=== PATIENT | male | born 1990 | race Caucasian/White ===

== ENCOUNTER 2018-07-31 12:31 | Outpatient (RCR) | payer MEDICARE, MEDICAID, SELFPAY ==
--- NOTE | 2018-07-31 14:26 | IE_ITS ---
Date: 07/31/18 Referring: Simran Stevens NP M.D. Diagnosis: LBP P.T. Diagnosis: Same SUBJECTIVE: Kole complains of intermittent discomfort throughout the lower lumbar area which generally occurs with prolonged sitting and with activity that entails both bending and lifting. This does not generally interfere with his sleeping pattern with minimal a.m stiffness. It does not hurt with coughing or sneezing and no complains of sciatica. He does not have any bowel or bladder dysfunction. History of Present Illness: He is a 28 year old male with CP who has had chronic lumbago. He was seen numerous years ago and had a couple sessions of PT along with HEP. He has stopped performing his exercises a while back. Recently he has noticed a reoccurrence of his lumbago and was referred to PT. Pain Ratin-2/10 on VAS Pain Location: Throughout the central part of the low back. Current Level of Function: He has pain with lifting heavier items such as splitting and stacking wood along with sitting or standing for more than 1/2 hour, etc.. 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 He is on social security disability. Falls in the last year: ____ No __X__Yes - How many? __A few__ - (if over 2 , balance SM needs to be completed) Reported hospitalizations in the last year - __X__ No ____ Yes - Dates of admission/reason: Medications: Baclofen Quality of Life: __X__ Good Standardized Measures: MOLBPDQ: __20% deficit__ OBJECTIVE: Posture: (L) shoulder is lower than the (R) with lateral shift to the (L). His head is rotated to the (L) at approximately 45*. He has a mild protruding abdomen with lumbar lordosis and his (L) pelvic brim is lower than the (R). He is a significant pronator on the (L) compared to the (R). Observation: (behavior, atrophy, skin color, etc.) Pleasant with no abnormal pain behavior noted and cooperative. Gait: Ambulates without an assistive device with supination and pronation on the (L) along with toeing out with squinting patella due to his genu valgus. He has difficulty walking on his heels and toes due more to his balance rather than weakness. Palpation: He is non tender throughout the lumbar paraspinals, QL, piriformis, glute med. ROM: Cervical spine movements are non irritable, rotation to the (L) is at 80* to the (R) and 75* and side bending is 45* (B). Shoulder movements are approximately 150-160* and thumb behind his back is at the T8 level. His lumbar movements in the upright position. Flexion with distance between finger tips to floor is approximately 12-16 inches with end range drawing throughout the hamstring region. He tends to flex his knees when reaching forward and this is non painful to his low back area. Extension is at +20-25* with minimal end range discomfort. Side bending is hypomobile (B) at 2-3 inches but non painful. (B) hip, knee, talo crural sub talar mid tarsal movements are full and painless with movement. Strength: He has full motor control throughout, he has weakness of his back extensors at 2/5 as well as the glute med at -3/5 with excessive pelvic instability. Neuro: KJs are +3 and AJs are +2, Triceps are +1, Biceps/Brachioradialis is +2 and symmetrical. He has a positive Babinski on the (B) and along with agility with passive movements through all UEs. He has a resting tremor on the (L) hand which increases with more complex movements. Sensation is intact to light touch. Special Tests: He has a negative SLR (B) with hamstring length approximately 60 * and negative SLUMP test. He has excessive tibio torsion at 15-20* and he has a significant forefoot varus of approximately 10-12 * on the (L) and 6* on the ( R). Treatment: Today consisted of the evaluation along with development of HEP with participation of his health care coach. IE: [id number] Direct treatment time: 60 minutes Total treatment time: 60 minutes ASSESSMENT: Patient is a 28-year-old male, referred for PT services with the diagnosis of LBP. Patient presents with clinical signs and symptoms consistent with CP and episodic LBP due to postural malalignment functional leg length descrpancy due to a significant hyper pronation on the (L) along with excessive tibial torsion and poor core strength, as demonstrated by the following impairment level findings: Excessive loading of the skeletal system resulting lumbago, particularly when lifting, bending and prolonged standing or sitting. Patient is assessed as: __X__ Low 39738 ____ Moderate 67798 ____ High 36710 complexity, based on the following: History: Episodic LBP Examination: See above for functional limitations and impairments. Presentation: X Stable Decision-Making: X Low complexity 20 % Disability based on MOLPBDQ __X__ Patient requires skilled PT intervention to remediate the above functional limitations to return to: __X__ Improve QOL Prognosis: __X__ Fair G-Codes: Patient's primary functional limitation is in the category of: __X__ Carrying, moving and handling objects: [id number] Projected goal: __X__ Carrying, moving, and handling objects [id number] STG: __6__ weeks. 1. Biomechanical alignment of the ankle foot complex to address his pronation particularly on the (L) in hopes to formalize the leg length along with increased core strength and stabilize the trunk while moving his UE. 2. Decrease his stress to his skeletal system in hopes that it will reduce his pain with his functional activities with bending lifting and carrying as well as prolonged positioning standing and sitting. LTG: __12__ weeks. __X__ Improve his QOL PLAN: Session today consisted of the evaluation along with developing a HEP focusing on core strength and proper gait mechanics which will be reinforced by his health care coach. Also proper postural alignment with use of lumbar support with sitting etc.. I will see him next week and fabricate a pair of accommodative type orthotics and work on further core strengthening exercises. Thank you for this referral. Please do not hesitate to contact me with any questions or concerns regarding this patient's plan of care. Simran Stevens NP please sign below if you are in agreement with this pt's plan of care,
== END 2018-07-31 23:59 | disposition home or self-care (01) ==
LOC: PT 12:31
PROVIDERS: PCP Nurse Practitioner Adult Health; Referring Provider Nurse Practitioner Adult Health; Visit Provider Nurse Practitioner Adult Health
DX: M54.5 Low back pain (principal); Q72.92 Unspecified reduction defect of left lower limb; R29.3 Abnormal posture
CPT/HCPCS: 97110; 97161

== ENCOUNTER 2019-07-27 16:37 | Outpatient (REF) | payer MEDICARE, MEDICAID, SELFPAY ==
[2019-07-27 18:29] LABS: Abs Immature Grans 0.01 k/cumm (0.0-0.09); Absolute Basophil Count 0.01 k/cumm (0.0-0.2); Absolute Eosinophil Count 0.17 k/cumm (0.0-0.7); Absolute Monocyte Count 0.44 k/cumm (0.11-0.7); Absolute Neutrophil Count 3.58 k/cumm (1.2-6.7); Basophils % 0.2; Eosinophils % 2.8; HCT 47.6 % (40.0-50.0); HGB 16.1 g/dL (13.5-17.5); Immature Grans % 0.2; Mean Corp. HGB Concentration 33.8 g/dL (32.0-36.0); Mean Corpuscular Hemoglobin 29.3 pg (27.0-33.0); Mean Corpuscular Volume 86.7 fL (80-95); Mean Platelet Volume 13.6 fL (8.0-11.0); Monocytes % 7.3; Neutrophils % 59.5; Platelet Count 177 x1000/uL (130-400); RBC 5.49 m/cumm (4.50-6.00); RBC Distribution Width 13.4 % (11.8-14.1); White Blood Cell Count 6.01 k/cumm (4.4-10.8)
[2019-07-27 18:46] LABS: ALT 41 U/L (16-63); AST 23 U/L (15-37); Albumin 4.1 g/dL (3.4-5.0); Alkaline Phosphatase 103 U/L (46-116); Anion Gap 9.8 mmol/L (3-11); BUN 19 mg/dL (7-18); Bilirubin, Total 1.1 mg/dL (0.2-1.0); CO2 28.2 mmol/L (21.0-32.0); CREATININE 1.01 mg/dL (0.70-1.30); Chloride 109 mmol/L (98-107); Glucose 84 mg/dL (70-100); Potassium 4.1 mmol/L (3.5-5.1); Sodium 147 mmol/L (136-145); TSH (W/Ref FT4) 0.91 uIU/mL (0.36-3.74); Total Protein 7.3 g/dL (6.4-8.2)
== END 2019-07-27 16:57 ==
LOC: NCHCN 16:37
PROVIDERS: PCP Nurse Practitioner Family; Visit Provider Nurse Practitioner Family
DX: R63.4 Abnormal weight loss (principal)
CPT/HCPCS: 80053; 84443; 85025

== ENCOUNTER 2019-07-28 19:49 | Outpatient (REF) | payer MEDICARE, MEDICAID, SELFPAY ==
[2019-07-28 19:33] LABS: Bilirubin Negative (Negative); Blood Negative (Negative); Clarity Cloudy (Clear); Glucose Negative (Negative); Ketones Trace mg/dL (Negative); Leukocyte Esterase Negative (Negative); Nitrite Negative (Negative); Specific Gravity >= 1.030 (1.005-1.025); Urobilinogen 0.2 EU/dL (Up TO 0.2); pH 5.5 (5-8)
== END 2019-07-28 20:09 ==
LOC: NCHCN 19:49
PROVIDERS: PCP Nurse Practitioner Family; Visit Provider Nurse Practitioner Family
DX: R63.4 Abnormal weight loss (principal)
CPT/HCPCS: 81003

== ENCOUNTER 2021-09-03 16:00 | Outpatient (REF) | payer MEDICARE, MEDICAID, SELFPAY | END 2021-09-03 16:01 | disposition home or self-care (01) | LOC: LBN 16:00 | PROVIDERS: PCP Nurse Practitioner Family; Visit Provider Family Medicine | DX: L98.499 Non-pressure chronic ulcer of skin of other sites with unspecified severity (principal) | CPT/HCPCS: 87077; 87070; 87186; 87205 ==

== ENCOUNTER 2022-05-09 14:53 | Outpatient (REF) | payer MEDICARE, MEDICAID, SELFPAY ==
[2022-05-09 18:54] LABS: Abs Immature Grans 0.02 10^3/uL (0.0-0.06); Absolute Basophil Count 0.03 10^3/uL (0.0-0.2); Absolute Eosinophil Count 0.13 10^3/uL (0.0-0.7); Absolute Lymphocyte Count 1.54 10^3/uL (1.2-3.4); Absolute Monocyte Count 0.37 10^3/uL (0.1-0.8); Absolute Neutrophil Count 3.44 10^3/uL (1.2-6.7); Basophils % 0.5; Eosinophils % 2.4; HCT 45.1 % (40.0-50.0); HGB 15.3 g/dL (13.5-17.5); Immature Grans % 0.4; Lymphocytes % 27.8; MCH 29.6 pg (27.0-33.0); MCHC 33.9 % (32.0-36.0); MCV 87 fL (80-95); Monocytes % 6.7; Neutrophils % 62.2; Platelet Count 166 10^3/uL (130-400); RBC 5.17 10^6/uL (4.36-5.78); RDW 12.5 % (11.8-14.1); WBC 5.53 10^3/uL (4.4-10.8)
[2022-05-09 19:25] LABS: Calcium 8.4 mg/dL (8.5-10.1); Glucose 87 mg/dL (74-106); Potassium 4.3 mmol/L (3.5-5.1); Total Protein 7.2 g/dL (6.4-8.2)
[2022-05-09 19:48] LABS: ALT 44 U/L (16-63); AST 17 U/L (15-37); Albumin 3.9 g/dL (3.4-5.0); Alkaline Phosphatase 106 U/L (46-116); Anion Gap 8.3 mmol/L (3-11); BUN 17 mg/dL (7-18); Bilirubin, Total 0.9 mg/dL (0.2-1.0); CO2 27.7 mmol/L (21.0-32.0); CREATININE 0.9 mg/dL (0.70-1.30); Chloride 107 mmol/L (98-107); Sodium 143 mmol/L (136-145); TSH (W/Ref FT4) 0.93 uIU/mL (0.36-3.74)
== END 2022-05-09 14:54 | disposition home or self-care (01) ==
LOC: NCHCN 14:53
PROVIDERS: PCP Nurse Practitioner Family; Visit Provider Nurse Practitioner Family
DX: R63.4 Abnormal weight loss (principal)
CPT/HCPCS: 80053; 84443; 85025

== ENCOUNTER 2023-03-27 10:16 | Emergency (ER) | payer MEDICARE, MEDICAID, SELFPAY ==
[2023-03-27 10:18] VITALS: BP 122/71; PULSE 68; RESP 20; TEMP 36.8; O2SAT 97
--- NOTE | 2023-03-27 10:18 | ED.GENADUL_ITS ---
Discharge Plan Disposition Patient Disposition: Home Discharge Details Clinical Impression: Left ankle sprain Primary Care Provider: Beth Salter RN,Jules ED Provider: Anthony Gibbons Home Meds and New Rx's Prescriptions: Continued ibuprofen 600 MG tablet 600 mg PO QID PRN PRN loperamide 2 MG capsule 1 tab PO PRN PRN baclofen 10 MG tablet 5 mg PO PRN PRN fluoxetine 10 MG capsule 10 mg PO QAM lorazepam 1 MG tablet 1 mg PO PRN PRN albuterol sulfate [ProAir HFA] 200 PUFF HFA aerosol inhaler 2 puff Inhalation Q4H PRN PRN aripiprazole [Abilify] 20 MG tablet 20 mg PO DAILY prednisone 20 MG tablet 20 mg PO BID Qty: 10 0RF cephalexin 500 MG capsule 500 mg PO QID Qty: 28 0RF hydrocortisone 30 GM cream 30 gm Topical TID PRN (Reason: Itching) Qty: 1 0RF hydroxyzine HCl 25 MG tablet 25 mg PO Q6H PRN PRN (Reason: Itching) Qty: 25 0RF Discharge Instructions Instructions: Ankle Sprain (ED) Additional Instructions: Please read all of the information that accompanies these instructions. You were seen in the emergency department for your ankle pain. Your x-ray showed no sign of any fractures. Please schedule an appointment with your primary care provider later this week. Please return to the emergency department if if you develop numbness or tingling in your left foot. You may bear weight on your left leg as you are able. Please wear this lace up brace as needed for discomfort. For your pain please take medications as follows: 1. Take acetaminophen (Tylenol), 1,000 mg (two 500 mg tabs) every 6 hours 2. Take ibuprofen (Advil), 400 mg every 6 hours. Medical Decision Making This is an overall very well-appearing normothermic and not tachycardic 33-year-old male with left lateral malleolus pain and swelling status post injury several days ago concerning for fracture versus sprain. No signs of cellulitis nor abscess. No pain out of proportion to suggest necrotizing soft tissue infection. No proximal tibial tenderness to suggest Maisonneuve injury. No head strike to suggest increased risk for intracranial hemorrhage. No knee pain to suggest knee dislocation. No midfoot instability to suggest Lisfranc injury. No lateral foot tenderness to suggest Rodriguez fracture. No calcaneal tenderness to suggest calcaneal fracture. No history of axial loading to suggest increased risk for fibular fracture. No nausea nor vomiting to suggest intra-abdominal process. Will obtain radiographs to assess for fracture. If x- rays are negative for fracture will advise oral acetaminophen and ibuprofen along with ice and elevation and provide patient with a lace up ankle brace to use as needed for discomfort. 11:20 AM Unremarkable radiographs. I provided the patient with a lace up brace. I offered him crutches but he declined. I advised ice 20 minutes on 20 minutes off and acetaminophen with ibuprofen for analgesia. I advised patient could be weightbearing as tolerated. HPI General Date/Time Provider Initiated Documentation: 03/27/23 10:17 . HPI Narrative: This is a 33-year-old male arriving to the emergency department via private vehicle in the setting of left ankle pain. Patient reports that 4 to 5 days ago he injured his ankle. He is not sure exactly the mechanism but he reports that he was walking up from an embankment when he lost his balance. He has subsequently been able to ambulate but has pain with bearing weight on his left ankle. He attempted treatment at home with ice and acetaminophen which he last took yesterday evening. He has never had any surgeries to his left ankle in the past. He did not hit his head when he lost his balance. He denies any preceding fevers chills dizziness nausea and vomiting. Related Data Home Medications Medication Instructions Recorded Confirmed ibuprofen 600 mg tablet 600 mg PO QID PRN PRN 11/07/16 03/27/23 albuterol sulfate 90 mcg/actuation 2 puff inhalation Q4H PRN PRN 06/30/17 03/27/23 aerosol inhaler (ProAir HFA) aripiprazole 20 mg tablet (Abilify) 20 mg PO DAILY 06/30/17 03/27/23 baclofen 10 mg tablet 5 mg PO PRN PRN 06/30/17 03/27/23 cephalexin 500 mg capsule 500 mg PO QID #28 caps 06/30/17 03/27/23 fluoxetine 10 mg capsule 10 mg PO QAM 06/30/17 03/27/23 hydrocortisone 2.5 % topical cream 30 gm topical TID PRN Itching #1 06/30/17 03/27/23 tube loperamide 2 mg capsule 1 tab PO PRN PRN 06/30/17 03/27/23 lorazepam 1 mg tablet 1 mg PO PRN PRN 06/30/17 03/27/23 prednisone 20 mg tablet 20 mg PO BID #10 tabs 06/30/17 03/27/23 hydroxyzine HCl 25 mg tablet 25 mg PO Q6H PRN PRN Itching #25 07/10/17 03/27/23 tabs Previous Rx's Medication Instructions Recorded cephalexin 500 mg capsule 500 mg PO QID #28 caps 06/30/17 hydrocortisone 2.5 % topical cream 30 gm topical TID PRN Itching #1 06/30/17 tube prednisone 20 mg tablet 20 mg PO BID #10 tabs 06/30/17 hydroxyzine HCl 25 mg tablet 25 mg PO Q6H PRN PRN Itching #25 07/10/17 tabs Allergies Allergy/AdvReac Type Severity Reaction Status Date / Time No Known Allergies Allergy Unverified 09/23/17 14:10 PFSH All Active Problems (Updated 03/27/23 @ 10:37 by Anthony Gibbons MD) Left ankle sprain (Acute) Social History Smoking/Tobacco Use Status: Never Smoking risk assessment performed?: Yes Alcohol Intake: never Drug use: Never Substance use type: does not use Do you feel safe in your relationship?: Yes Exam Narrative Exam Narrative: General: Well-appearing in no acute distress speaking in complete sentences. Head: Normocephalic, atraumatic. Eye: Pupils equal, round reactive to light. Extraocular eye movements intact. No conjunctival injection. No scleral icterus. Ear, nose, mouth, throat: Grossly normal inspection. Normal voice, handling secretions normally. Neck: Trachea midline. Cardiovascular: Well-perfused distal extremities. Respiratory: Nonlabored respiration. Gastrointestinal: Nondistended abdomen. Musculoskeletal: Left lateral malleolus tender and swollen. 2+ PT and DP pulses. Patient has 5 out of 5 strength in dorsi and plantarflexion of the left foot. Sensation intact in the webspace between the great and second toes. Cap refill less than 2 seconds in the left toes. No calcaneal tenderness. No midfoot instability. No tenderness on the lateral aspect of the left foot. Skin: Normal for age and race, grossly normal temperature and turgor. No acute rash. Neurologic: Alert and appropriate, no apparent acute deficits. Psychiatric: Mood and manner are appropriate. Grooming and personal hygiene are appropriate.
[2023-03-27] MEDS: Ibuprofen 800 MG TAB 600 MG PO (10:34)
[2023-03-27] MEDS: Acetaminophen 500 MG TAB 1000 MG PO (10:34)
--- NOTE | 2023-03-27 10:50 | DI.RAD_ITS ---
Exam(s) XR ANKLE LT COMPLETE EXAM: XR ANKLE LT COMPLETE CLINICAL HISTORY: Left lateral malleolar tenderness and swelling TECHNIQUE: 2D digital imaging was performed of the left ankle. Three images were obtained. AP, lat eral and oblique views were obtained. COMPARISON: No exams were available for comparison FINDINGS: BONES: No acute fracture is present. No bony destructive lesion is seen. JOINTS:The ankle mortise is normally aligned. SOFT TISSUE: Normal. IMPRESSION: Unremarkable radiographs of the left ankle. DATA REPOSITORY: RADIATION DOSE DELIVERED:
[2023-03-27 11:34] VITALS: BP 126/80; PULSE 70; RESP 20; TEMP 36.8; O2SAT 99
== END 2023-03-27 11:34 | disposition home or self-care (01) ==
LOC: ER 10:43
PROVIDERS: Emergency Provider Emergency Medicine
DX: S93.402A Sprain of unspecified ligament of left ankle, initial encounter (principal); X50.9XXA Other and unspecified overexertion or strenuous movements or postures, initial encounter
CPT/HCPCS: 99283; 73610

== ENCOUNTER 2024-02-12 03:15 | Outpatient (CLI) | payer MEDICARE, MEDICAID, SELFPAY ==
[2024-02-12 10:53] LABS: Abs Immature Grans 0.01 10^3/uL (0.0-0.06); Absolute Basophil Count 0.02 10^3/uL (0.0-0.2); Absolute Eosinophil Count 0.12 10^3/uL (0.0-0.7); Absolute Monocyte Count 0.29 10^3/uL (0.1-0.8); Absolute Neutrophil Count 2.52 10^3/uL (1.2-6.7); Basophils % 0.4; Eosinophils % 2.7; HCT 47.7 % (40.0-50.0); HGB 16.2 g/dL (13.5-17.5); Immature Grans % 0.2; Lymphocytes % 33.6; MCV 86 fL (80-95); MPV 13.1 fL (8.0-11.0); Monocytes % 6.5; Neutrophils % 56.6; Platelet Count 163 10^3/uL (130-400); RBC 5.58 10^6/uL (4.36-5.78); RDW 12.8 % (11.8-14.1); RDW-SD 39.8 fL; WBC 4.46 10^3/uL (4.4-10.8)
[2024-02-12 11:51] LABS: Hemoglobin A1C 5.3 % (<5.7)
[2024-02-12 12:12] LABS: ALT 28 U/L (16-63); AST 18 U/L (15-37); Alkaline Phosphatase 86 U/L (46-116); Anion Gap 10.5 mmol/L (3-11); BUN 16 mg/dL (7-18); Bilirubin, Total 1.5 mg/dL (0.2-1.0); CO2 25.5 mmol/L (21.0-32.0); CREATININE 0.9 mg/dL (0.70-1.30); Calculated LDL 99 mg/dL (<100); Chloride 109 mmol/L (98-107); Cholesterol 166 mg/dL (<200); Estimated GFR 113.51 (mL/min/1.73m2); Glucose 94 mg/dL (74-106); HDL Cholesterol 60 mg/dL (40-60); Potassium 4.3 mmol/L (3.5-5.1); Sodium 145 mmol/L (136-145); Total Protein 7.4 g/dL (6.4-8.2); Triglyceride 39 mg/dL (<150)
== END 2024-02-12 03:16 | disposition home or self-care (01) ==
LOC: LBO 03:15
PROVIDERS: PCP Physician Assistant; Visit Provider Psychiatry & Neurology Child & Adolescent Psychiatry
DX: F70 Mild intellectual disabilities (principal); F63.9 Impulse disorder, unspecified
CPT/HCPCS: 80053; 80061; 83036; 85025

== ENCOUNTER 2024-07-27 18:21 | Outpatient (REF) | payer MEDICARE, MEDICAID, SELFPAY ==
[2024-07-27 19:14] LABS: Bacteria Negative HPF (Negative); C & S Indicated? No; Crystals Many Amorphous HPF (Negative); Epithelial Cells Rare HPF (Negative); Mucus Trace (Negative); RBC Negative HPF (0-2); WBC Negative HPF (0-5)
== END 2024-07-27 18:22 | disposition home or self-care (01) ==
LOC: LBN 18:21
PROVIDERS: PCP Physician Assistant; Visit Provider Nurse Practitioner Family
DX: M54.6 Pain in thoracic spine (principal)
CPT/HCPCS: 81015

== ENCOUNTER 2025-11-08 15:05 | Outpatient (CLI) | payer MEDICARE, MEDICAID, SELFPAY ==
--- NOTE | 2025-11-08 14:00 | DI.RAD_ITS ---
Exam(s) XR HAND LT COMPLETE EXAM: XR HAND LT COMPLETE CLINICAL HISTORY: middle finger pip pain/popping. TECHNIQUE: 2D digital imaging was performed. COMPARISON: No exams were available for comparison FINDINGS: 3 views No evidence of fracture nor dislocation nor abnormal soft tissue densities. Oblique line in the distal half of the proximal phalanx of the 3rd finger has appearance of a nutrient artery canal. There are no obvious degenerative changes in the hand and there are no erosions. Bone density is normal. There are no osseous lesions. No radiopaque foreign bodies. IMPRESSION: No acute osseous findings in the left hand. DATA REPOSITORY: RADIATION DOSE DELIVERED:
== END 2025-11-08 15:06 | disposition home or self-care (01) ==
LOC: DIORS 15:05
PROVIDERS: PCP Physician Assistant; Referring Provider Physician Assistant; Visit Provider Student in an Organized Health Care Education/Training Program
DX: M65.332 Trigger finger, left middle finger (principal); M79.642 Pain in left hand; G80.9 Cerebral palsy, unspecified
CPT/HCPCS: 99214; 73130